=== PATIENT | female | born 1960 | race Caucasian/White ===

== ENCOUNTER 2020-10-30 02:49 | Outpatient (CLI) | payer OTHER, SELFPAY ==
[2020-10-30 08:36] LABS: Abs Immature Grans 0.01 10^3/uL (0.0-0.06); Absolute Basophil Count 0.02 10^3/uL (0.0-0.2); Absolute Eosinophil Count 0.03 10^3/uL (0.0-0.7); Absolute Lymphocyte Count 0.57 10^3/uL (1.2-3.4); Absolute Monocyte Count 0.45 10^3/uL (0.1-0.8); Absolute Neutrophil Count 4.43 10^3/uL (1.2-6.7); Basophils % 0.4; Eosinophils % 0.5; HCT 34.9 % (36.0-46.0); HGB 11.2 g/dL (11.2-15.7); Immature Grans % 0.2; Lymphocytes % 10.3; MCH 27.9 pg (27.0-33.0); MCHC 32.1 % (32.0-36.0); Monocytes % 8.2; Neutrophils % 80.4; Nucleated RBC 0 %; Platelet Count 358 10^3/uL (130-400); RBC 4.01 10^6/uL (3.93-5.22); RDW-SD 45.2 fL; WBC 5.51 10^3/uL (4.4-10.8)
[2020-10-30 08:50] LABS: ALT 18 U/L (14-59); AST 16 U/L (15-37); Albumin 3.3 g/dL (3.4-5.0); Alkaline Phosphatase 100 U/L (46-116); Anion Gap 5.5 mmol/L (3-11); BUN 8 mg/dL (7-18); Bilirubin, Total 0.5 mg/dL (0.2-1.0); CO2 29.5 mmol/L (21.0-32.0); CREATININE 0.71 mg/dL (0.55-1.02); Calcium 9.2 mg/dL (8.5-10.1); Chloride 100 mmol/L (98-107); Glucose 94 mg/dL (74-106); Sodium 135 mmol/L (136-145); Total Protein 7.5 g/dL (6.4-8.2)
[2020-10-30 14:53] LABS: FREE T4 1.09 ng/dL (0.76-1.46); TSH 2.56 uIU/mL (0.36-3.74)
== END 2020-10-30 03:09 ==
PROVIDERS: PCP Preventive Medicine Undersea and Hyperbaric Medicine; Visit Provider Preventive Medicine Undersea and Hyperbaric Medicine
DX: C02.1 Malignant neoplasm of border of tongue (principal)
CPT/HCPCS: 36415; 80053; 84439; 84443; 85025

== ENCOUNTER 2020-11-03 04:49 | Outpatient (CLI) | payer OTHER, SELFPAY ==
[2020-11-03] MEDS: Omnipaque 350 MG/ML 50 ML BTL PO (09:38)
[2020-11-03] MEDS: Omnipaque 350 MG/ML 100 ML BTL IJ (10:47)
[2020-11-03] MEDS: Normal Saline - Diluent 50 ML VIAL IV (10:47)
[2020-11-03] MEDS: Normal Saline Flush 10 ML SYR IVP (10:48)
--- NOTE | 2020-11-03 10:49 | DI.CT_ITS ---
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 TECHNIQUE: Imaging Protocol: Axial computed tomography images with coronal and sagittal reformatted images were created and reviewed CONTRAST MATERIAL: Intravenous: Omnipaque 350 Contrast volume:100 ml Oral: None COMPARISON: No exams were available for comparison FINDINGS: CHEST: LUNGS: There is a concerning thick-walled cavitated lesion in the superior segment of the left lower lobe which measures 3.7 centimeters AP by 4.2 centimetres wide by 3.2 cm cephalocaudal. This contain s a fluid level therein. This contacts the pleural surface. Malignant until proven otherwise. Othe r configuration would be for infectious etiology. There is no overlying rib destruction. There is n o ipsilateral pleural effusion. Higher up in the left lung there are few small nodular infiltrates, the largest of these measuring 9 x 7 millimeters, suspicious. There are no significant focal findings in the basal segments of left l ower lobe nor in the lingular segment. In the opposite-right lung there is a small cavitated lesion in the sub apical upper lobe which measu res 7 x 7 millimeters. There are no other cavitated lesions in the right lung. However, there is a prominent mass in the right middle lobe medial segment contiguous with the right heart border, this m easuring 4.3 centimetres AP by 2.6 centimeters wide. Also suspicious for malignancy. There is a very small right pleural effusion. MEDIASTINUM: There is no adenopathy in left hilum. The right hilum is contiguous with the above desc ribed sub hilar masses. There is no subcarinal adenopathy. No adenopathy in the anterior mediastina l fat. No axillary adenopathy evident. Thyroid gland is diminutive CARDIAC: Heart size is normal. There is no pericardial effusion.Caliber of the ascending thoracic ao rta is slightly prominent at 3.8 centimetres. The diameter of the aortic arch is 2.5 centimetres. D iameter of the upper descending thoracic aorta is 2.5 centimetres and diameter of the lower thoracic aorta is 2.2 centimetres. There is no dissection. OSSEOUS: No significant thoracic osseous lesions.. ABDOMEN: There is no ascites. There is a minimal amount of intraperitoneal fat. LIVER: In the mid aspect of the liver adjacent to the portal vein there is a a 3.2 by 2.5 cm lesion w hich is difficult to assess on this single run study but this probably a benign hemangioma given that there is some nodular peripheral enhancement. There are few smaller indeterminate hypodensities in the liver also noted, the largest of these measuring 7 x 4 millimeters. GALLBLADDER/BILIARY: No obvious gallbladder pathology. CBD is not dilated. PANCREAS: No evidence of pancreatic mass nor dilatation of the pancreatic duct. SPLEEN: Spleen is not enlarged. There are no intrasplenic lesions. Splenic and portal veins are joe nt. ADRENALS: There are no significant adrenal masses. KIDNEYS: No calculi nor hydronephrosis. No solid renal masses. There is a 7 millimeter benign cyst in the lateral cortex of the left kidney. There is a 3 millimeter cortical cyst anteriorly in the righ t kidney. No solid renal masses or calculi nor hydronephrosis. ABDOMINAL AORTA: Abdominal aorta is not enlarged and there is no [id number] adenopat hy. ABDOMINAL WALL/GI: No evidence of significant anterior abdominal wall hernia. No bowel obstruction. PELVIS: LYMPH NODES: There is no intrapelvic nor inguinal adenopathy. GI: No evidence of appendicitis.No evidence of sigmoid diverticulitis. URINARY BLADDER: No calculi nor masses evident REPRODUCTIVE: There is a large mass in the fundus of the uterus which measures 8 centimetres AP by 6. 5 centimetres cephalocaudal by 7 centimetres wide, displacing adjacent small enlarged bowel loops. T his mass is heterogeneous and does not have the typical appearance of a benign fibroid possibly aggre ssive fibroid or other neoplasm of the uterus. There are dilated bilateral parauterine veins. These drain into prominent gonadal veins. The ovarie s are difficult to locate. There is a tiny amount of free fluid in the dependent aspect of the pelvi s. OSSEOUS: There is a lytic appearing bone lesion in the right side of the sacrum which measures 3 cent imetres AP by 2 centimeters wide and extends from the lateral aspect of the sacroiliac joint out to t he lateral cortex of the iliac bone where there is cortical bulging and thinning but no distinct dehi scence as of yet. No other significant osseous lesions demonstrated within the bony pelvis and sacru m. IMPRESSION: 1. Multilevel normal findings as described above. 2. Large cavitated lesion in the superior segment of the left lower lobe with thick shaggy wall and f luid level. This malignant versus infectious. Smaller cavitated lesion is seen in the high upper lo be of the opposite-right lung, measuring less than 1 centimeter. 3. Large right middle lobe mass contiguous with the right heart border, also suspicious for malignanc y. Other smaller nodules. Very small right pleural effusion. No left pleural effusion no prominent hilar nor mediastinal adenopathy 4. Findings in the liver, the largest of which measures approximately 3.2 x 2.5 centimetres and is pr obably not metastatic, with appearance probably that of a benign cavernous hemangioma. This is diffi cult to assess accurately on this type study and hemangioma protocol MRI would be recommended here fo r added specificity. Other smaller findings all less than 1 centimeters size are noted in the liver which will also be better characterized on contrast infused MRI. 5. Large ominous central pelvic mass measuring 8 x 6.5 x 7 cm, appearing to be at the uterus level p ossibly an enlarged uterine fibroid, possibly with sarcomatous degeneration. The ovaries are difficu lt to identify in this study as separate structures. 6. There is a relatively well-defined lytic osseous lesion in the right hemipelvis which extends fro m the right sacroiliac joint to the lateral cortex of the right iliac bone. RADIATION DOSE DELIVERED: 1,060.09mGy.cm Total DLP DATA REPOSITORY: All CT scans at this facility are submitted to the National Radiology Data Registry (NRDR) Dose Index Registry (DIR) with the [employer] ([employer]). RADIATION OPTIMIZATION: All CT scans at this facility use at least one of these dose optimization te chniques: automated exposure control; mA and/or kV adjustment per patient size (includes targeted exa ms where dose is matched to clinical indication); or iterative reconstruction.
== END 2020-11-03 05:09 ==
PROVIDERS: PCP Internal Medicine; Visit Provider Internal Medicine Hematology & Oncology
DX: R91.8 Other nonspecific abnormal finding of lung field (principal); C76.0 Malignant neoplasm of head, face and neck; R93.2 Abnormal findings on diagnostic imaging of liver and biliary tract; R19.07 Generalized intra-abdominal and pelvic swelling, mass and lump; R93.7 Abnormal findings on diagnostic imaging of other parts of musculoskeletal system
CPT/HCPCS: 74177; 71260; J3490; Q9967

== ENCOUNTER 2020-11-20 04:22 | Outpatient (CLI) | payer OTHER, SELFPAY ==
[2020-11-20 12:05] LABS: Abs Immature Grans 0.02 10^3/uL (0.0-0.06); Absolute Basophil Count 0.02 10^3/uL (0.0-0.2); Absolute Eosinophil Count 0.05 10^3/uL (0.0-0.7); Absolute Lymphocyte Count 0.51 10^3/uL (1.2-3.4); Absolute Monocyte Count 0.46 10^3/uL (0.1-0.8); Absolute Neutrophil Count 5.59 10^3/uL (1.2-6.7); Basophils % 0.3; Eosinophils % 0.8; HCT 29.9 % (36.0-46.0); HGB 9.5 g/dL (11.2-15.7); Immature Grans % 0.3; Lymphocytes % 7.7; MCH 26.4 pg (27.0-33.0); MCHC 31.8 % (32.0-36.0); MCV 83.1 fL (80-95); Monocytes % 6.9; Nucleated RBC 0 %; Platelet Count 443 10^3/uL (130-400); RDW 14.4 % (11.7-14.6); RDW-SD 43.5 fL; WBC 6.65 10^3/uL (4.4-10.8)
[2020-11-20 12:29] LABS: ALT 11 U/L (14-59); AST 11 U/L (15-37); Albumin 2.7 g/dL (3.4-5.0); Alkaline Phosphatase 100 U/L (46-116); Anion Gap 8.9 mmol/L (3-11); BUN 6 mg/dL (7-18); Bilirubin, Total 0.3 mg/dL (0.2-1.0); CO2 25.1 mmol/L (21.0-32.0); CREATININE 0.5 mg/dL (0.55-1.02); Calcium 8.8 mg/dL (8.5-10.1); Chloride 101 mmol/L (98-107); FREE T4 1.12 ng/dL (0.76-1.46); Glucose 99 mg/dL (74-106); Potassium 3.9 mmol/L (3.5-5.1); Sodium 135 mmol/L (136-145); TSH 5.37 uIU/mL (0.36-3.74); Total Protein 6.8 g/dL (6.4-8.2)
== END 2020-11-20 04:42 ==
PROVIDERS: PCP Internal Medicine; Visit Provider Internal Medicine Hematology & Oncology
DX: C02.1 Malignant neoplasm of border of tongue (principal)
CPT/HCPCS: 36415; 80053; 84439; 84443; 85025

== ENCOUNTER 2020-12-11 02:54 | Outpatient (CLI) | payer OTHER, SELFPAY ==
[2020-12-11 12:23] LABS: Abs Immature Grans 0.02 10^3/uL (0.0-0.06); Absolute Basophil Count 0.03 10^3/uL (0.0-0.2); Absolute Eosinophil Count 0.05 10^3/uL (0.0-0.7); Absolute Lymphocyte Count 0.41 10^3/uL (1.2-3.4); Absolute Monocyte Count 0.56 10^3/uL (0.1-0.8); Absolute Neutrophil Count 7.26 10^3/uL (1.2-6.7); Basophils % 0.4; Eosinophils % 0.6; HCT 29.9 % (36.0-46.0); HGB 9.3 g/dL (11.2-15.7); Immature Grans % 0.2; Lymphocytes % 4.9; MCH 26.1 pg (27.0-33.0); MCHC 31.1 % (32.0-36.0); MPV 8.9 fL (8.0-11.0); Monocytes % 6.7; Neutrophils % 87.2; Nucleated RBC 0 %; Platelet Count 400 10^3/uL (130-400); RBC 3.56 10^6/uL (3.93-5.22); RDW 15.9 % (11.7-14.6); RDW-SD 48.8 fL; WBC 8.33 10^3/uL (4.4-10.8)
[2020-12-11 12:47] LABS: ALT 10 U/L (14-59); AST 12 U/L (15-37); Albumin 2.6 g/dL (3.4-5.0); Alkaline Phosphatase 96 U/L (46-116); BUN 12 mg/dL (7-18); Bilirubin, Total 0.3 mg/dL (0.2-1.0); CREATININE 0.6 mg/dL (0.55-1.02); Calcium 8.6 mg/dL (8.5-10.1); Chloride 103 mmol/L (98-107); FREE T4 1.35 ng/dL (0.76-1.46); Glucose 92 mg/dL (74-106); Potassium 4.1 mmol/L (3.5-5.1); Sodium 137 mmol/L (136-145); TSH 2.29 uIU/mL (0.36-3.74); Total Protein 6.6 g/dL (6.4-8.2)
== END 2020-12-11 02:55 | disposition home or self-care (01) ==
LOC: LBO 02:54
PROVIDERS: PCP Internal Medicine; Visit Provider Internal Medicine Hematology & Oncology
DX: C02.1 Malignant neoplasm of border of tongue (principal)
CPT/HCPCS: 36415; 80053; 84439; 84443; 85025

== ENCOUNTER 2020-12-18 04:33 | Outpatient (CLI) | payer OTHER, SELFPAY ==
[2020-12-18 07:30] LABS: Abs Immature Grans 0.01 10^3/uL (0.0-0.06); Absolute Basophil Count 0.03 10^3/uL (0.0-0.2); Absolute Eosinophil Count 0.05 10^3/uL (0.0-0.7); Absolute Lymphocyte Count 0.39 10^3/uL (1.2-3.4); Absolute Monocyte Count 0.49 10^3/uL (0.1-0.8); Absolute Neutrophil Count 6.45 10^3/uL (1.2-6.7); Basophils % 0.4; Eosinophils % 0.7; HCT 31.1 % (36.0-46.0); HGB 9.8 g/dL (11.2-15.7); Immature Grans % 0.1; Lymphocytes % 5.3; MCH 26.1 pg (27.0-33.0); MCHC 31.5 % (32.0-36.0); MCV 82.7 fL (80-95); MPV 9.7 fL (8.0-11.0); Monocytes % 6.6; Neutrophils % 86.9; Nucleated RBC 0 %; Platelet Count 385 10^3/uL (130-400); RBC 3.76 10^6/uL (3.93-5.22); RDW 15.9 % (11.7-14.6); RDW-SD 48.4 fL; WBC 7.42 10^3/uL (4.4-10.8)
[2020-12-18 07:57] LABS: ALT 11 U/L (14-59); AST 12 U/L (15-37); Albumin 2.9 g/dL (3.4-5.0); Alkaline Phosphatase 102 U/L (46-116); Anion Gap 6.3 mmol/L (3-11); BUN 11 mg/dL (7-18); Bilirubin, Total 0.3 mg/dL (0.2-1.0); CO2 28.7 mmol/L (21.0-32.0); CREATININE 0.6 mg/dL (0.55-1.02); Chloride 100 mmol/L (98-107); Glucose 98 mg/dL (74-106); Potassium 3.9 mmol/L (3.5-5.1); Sodium 135 mmol/L (136-145); TSH 2.43 uIU/mL (0.36-3.74); Total Protein 7.2 g/dL (6.4-8.2)
== END 2020-12-18 04:34 | disposition home or self-care (01) ==
LOC: LBO 04:33
PROVIDERS: PCP Internal Medicine; Visit Provider Internal Medicine Hematology & Oncology
DX: C02.1 Malignant neoplasm of border of tongue (principal)
CPT/HCPCS: 36415; 80053; 84439; 84443; 85025

== ENCOUNTER 2021-01-08 03:39 | Outpatient (CLI) | payer OTHER, SELFPAY ==
[2021-01-08 08:03] LABS: Abs Immature Grans 0.03 10^3/uL (0.0-0.06); Absolute Basophil Count 0.04 10^3/uL (0.0-0.2); Absolute Eosinophil Count 0.03 10^3/uL (0.0-0.7); Absolute Lymphocyte Count 0.41 10^3/uL (1.2-3.4); Absolute Monocyte Count 0.54 10^3/uL (0.1-0.8); Absolute Neutrophil Count 6.98 10^3/uL (1.2-6.7); Basophils % 0.5; Eosinophils % 0.4; HGB 9.1 g/dL (11.2-15.7); Immature Grans % 0.4; Lymphocytes % 5.1; MCH 24.8 pg (27.0-33.0); MCHC 30.3 % (32.0-36.0); MCV 81.7 fL (80-95); MPV 8.1 fL (8.0-11.0); Monocytes % 6.7; Neutrophils % 86.9; Nucleated RBC 0 %; Platelet Count 504 10^3/uL (130-400); RBC 3.67 10^6/uL (3.93-5.22); RDW 17.7 % (11.7-14.6); RDW-SD 51.2 fL; WBC 8.03 10^3/uL (4.4-10.8)
[2021-01-08 08:24] LABS: ALT 14 U/L (14-59); AST 14 U/L (15-37); Albumin 2.9 g/dL (3.4-5.0); Alkaline Phosphatase 92 U/L (46-116); Anion Gap 6.5 mmol/L (3-11); BUN 16 mg/dL (7-18); Bilirubin, Total 0.2 mg/dL (0.2-1.0); CO2 29.5 mmol/L (21.0-32.0); CREATININE 0.6 mg/dL (0.55-1.02); Calcium 8.8 mg/dL (8.5-10.1); Chloride 99 mmol/L (98-107); FREE T4 1.21 ng/dL (0.76-1.46); Glucose 105 mg/dL (74-106); Potassium 4.5 mmol/L (3.5-5.1); Sodium 135 mmol/L (136-145); TSH 3.68 uIU/mL (0.36-3.74)
[2021-01-08 09:29] LABS: Magnesium 2.3 mg/dL (1.8-2.4)
== END 2021-01-08 03:40 | disposition home or self-care (01) ==
LOC: LBO 03:40
PROVIDERS: PCP Internal Medicine; Visit Provider Internal Medicine Hematology & Oncology
DX: C02.1 Malignant neoplasm of border of tongue (principal)
CPT/HCPCS: 36415; 80053; 83735; 84439; 84443; 85025

== ENCOUNTER 2021-01-29 08:02 | Outpatient (CLI) | payer OTHER, SELFPAY ==
[2021-01-29 08:21] LABS: Abs Immature Grans 0.01 10^3/uL (0.0-0.06); Absolute Basophil Count 0.04 10^3/uL (0.0-0.2); Absolute Eosinophil Count 0.02 10^3/uL (0.0-0.7); Absolute Lymphocyte Count 0.44 10^3/uL (1.2-3.4); Absolute Neutrophil Count 4.86 10^3/uL (1.2-6.7); Basophils % 0.7; Eosinophils % 0.3; HCT 32.4 % (36.0-46.0); HGB 9.9 g/dL (11.2-15.7); Immature Grans % 0.2; Lymphocytes % 7.5; MCHC 30.6 % (32.0-36.0); MCV 81.8 fL (80-95); MPV 8.1 fL (8.0-11.0); Monocytes % 8.5; Neutrophils % 82.8; Nucleated RBC 0 %; Platelet Count 460 10^3/uL (130-400); RBC 3.96 10^6/uL (3.93-5.22); RDW 18.6 % (11.7-14.6); RDW-SD 54.9 fL; WBC 5.87 10^3/uL (4.4-10.8)
[2021-01-29 08:42] LABS: ALT 14 U/L (14-59); AST 10 U/L (15-37); Albumin 3.2 g/dL (3.4-5.0); Alkaline Phosphatase 94 U/L (46-116); Anion Gap 8.2 mmol/L (3-11); BUN 12 mg/dL (7-18); Bilirubin, Total 0.2 mg/dL (0.2-1.0); CO2 29.8 mmol/L (21.0-32.0); CREATININE 0.6 mg/dL (0.55-1.02); Chloride 99 mmol/L (98-107); FREE T4 1.16 ng/dL (0.76-1.46); Glucose 96 mg/dL (74-106); Sodium 137 mmol/L (136-145); TSH 3.89 uIU/mL (0.36-3.74)
== END 2021-01-29 08:03 | disposition home or self-care (01) ==
LOC: LBO 08:03
PROVIDERS: PCP Internal Medicine; Visit Provider Internal Medicine Hematology & Oncology
DX: C02.1 Malignant neoplasm of border of tongue (principal); R94.6 Abnormal results of thyroid function studies
CPT/HCPCS: 36415; 80053; 83735; 84439; 84443; 85025

== ENCOUNTER 2021-02-19 08:32 | Outpatient (CLI) | payer OTHER, SELFPAY ==
[2021-02-19 08:42] LABS: Abs Immature Grans 0.02 10^3/uL (0.0-0.06); Absolute Basophil Count 0.02 10^3/uL (0.0-0.2); Absolute Eosinophil Count 0.01 10^3/uL (0.0-0.7); Absolute Lymphocyte Count 0.48 10^3/uL (1.2-3.4); Absolute Neutrophil Count 3.56 10^3/uL (1.2-6.7); Basophils % 0.4; Eosinophils % 0.2; HGB 10.8 g/dL (11.2-15.7); Immature Grans % 0.4; Lymphocytes % 10.5; MCH 25.5 pg (27.0-33.0); MCHC 30.9 % (32.0-36.0); MCV 82.7 fL (80-95); MPV 8.1 fL (8.0-11.0); Monocytes % 10.9; Neutrophils % 77.6; Nucleated RBC 0 %; Platelet Count 441 10^3/uL (130-400); RBC 4.23 10^6/uL (3.93-5.22); RDW 19.6 % (11.7-14.6); RDW-SD 58.2 fL; WBC 4.59 10^3/uL (4.4-10.8)
[2021-02-19 08:56] LABS: ALT 17 U/L (14-59); AST 15 U/L (15-37); Albumin 3.4 g/dL (3.4-5.0); Alkaline Phosphatase 100 U/L (46-116); Anion Gap 6.8 mmol/L (3-11); BUN 11 mg/dL (7-18); Bilirubin, Total 0.3 mg/dL (0.2-1.0); CO2 31.2 mmol/L (21.0-32.0); CREATININE 0.6 mg/dL (0.55-1.02); Chloride 100 mmol/L (98-107); Glucose 98 mg/dL (74-106); Potassium 4.1 mmol/L (3.5-5.1); Sodium 138 mmol/L (136-145); Total Protein 7.6 g/dL (6.4-8.2)
[2021-02-19 10:15] LABS: Magnesium 2.2 mg/dL (1.8-2.4)
== END 2021-02-19 08:33 | disposition home or self-care (01) ==
LOC: LBO 08:32
PROVIDERS: PCP Internal Medicine; Visit Provider Internal Medicine Hematology & Oncology
DX: C02.1 Malignant neoplasm of border of tongue (principal)
CPT/HCPCS: 36415; 80053; 83735; 85025

== ENCOUNTER 2021-03-12 02:13 | Outpatient (CLI) | payer OTHER, SELFPAY ==
[2021-03-12 08:04] LABS: Abs Immature Grans 0.01 10^3/uL (0.0-0.06); Absolute Basophil Count 0.03 10^3/uL (0.0-0.2); Absolute Eosinophil Count 0.02 10^3/uL (0.0-0.7); Absolute Lymphocyte Count 0.55 10^3/uL (1.2-3.4); Absolute Monocyte Count 0.62 10^3/uL (0.1-0.8); Absolute Neutrophil Count 3.61 10^3/uL (1.2-6.7); Basophils % 0.6; Eosinophils % 0.4; HCT 34.4 % (36.0-46.0); Immature Grans % 0.2; Lymphocytes % 11.4; MCH 26.1 pg (27.0-33.0); MCV 81.5 fL (80-95); MPV 8.2 fL (8.0-11.0); Monocytes % 12.8; Neutrophils % 74.6; Nucleated RBC 0 %; Platelet Count 462 10^3/uL (130-400); RBC 4.22 10^6/uL (3.93-5.22); RDW 18.4 % (11.7-14.6); RDW-SD 54.3 fL; WBC 4.84 10^3/uL (4.4-10.8)
[2021-03-12 08:26] LABS: ALT 12 U/L (14-59); AST 13 U/L (15-37); Albumin 3.4 g/dL (3.4-5.0); Alkaline Phosphatase 104 U/L (46-116); Anion Gap 6.8 mmol/L (3-11); BUN 9 mg/dL (7-18); Bilirubin, Total 0.3 mg/dL (0.2-1.0); CO2 30.2 mmol/L (21.0-32.0); CREATININE 0.7 mg/dL (0.55-1.02); Calcium 9.3 mg/dL (8.5-10.1); Chloride 99 mmol/L (98-107); FREE T4 1.35 ng/dL (0.76-1.46); Glucose 96 mg/dL (74-106); Potassium 4.3 mmol/L (3.5-5.1); Sodium 136 mmol/L (136-145); TSH 2.03 uIU/mL (0.36-3.74); Total Protein 7.8 g/dL (6.4-8.2)
== END 2021-03-12 02:14 | disposition home or self-care (01) ==
LOC: LBO 02:13
PROVIDERS: PCP Internal Medicine; Visit Provider Internal Medicine Hematology & Oncology
DX: C02.1 Malignant neoplasm of border of tongue (principal); R94.6 Abnormal results of thyroid function studies
CPT/HCPCS: 36415; 80053; 84439; 84443; 85025

== ENCOUNTER 2021-04-09 03:19 | Outpatient (CLI) | payer OTHER, SELFPAY ==
[2021-04-09 09:32] LABS: Abs Immature Grans 0.01 10^3/uL (0.0-0.06); Absolute Basophil Count 0.02 10^3/uL (0.0-0.2); Absolute Eosinophil Count 0.03 10^3/uL (0.0-0.7); Absolute Lymphocyte Count 0.45 10^3/uL (1.2-3.4); Absolute Monocyte Count 0.26 10^3/uL (0.1-0.8); Absolute Neutrophil Count 2.73 10^3/uL (1.2-6.7); Basophils % 0.6; Eosinophils % 0.9; HCT 34.4 % (36.0-46.0); HGB 10.9 g/dL (11.2-15.7); Immature Grans % 0.3; Lymphocytes % 12.9; MCH 26.6 pg (27.0-33.0); MCHC 31.7 % (32.0-36.0); MCV 83.9 fL (80-95); MPV 8.4 fL (8.0-11.0); Monocytes % 7.4; Neutrophils % 77.9; Nucleated RBC 0 %; RDW 21.2 % (11.7-14.6); RDW-SD 61.9 fL
[2021-04-09 09:57] LABS: ALT 13 U/L (14-59); AST 13 U/L (15-37); Albumin 3.5 g/dL (3.4-5.0); Alkaline Phosphatase 105 U/L (46-116); Anion Gap 8.5 mmol/L (3-11); BUN 20 mg/dL (7-18); Bilirubin, Total 0.3 mg/dL (0.2-1.0); CO2 27.5 mmol/L (21.0-32.0); CREATININE 0.7 mg/dL (0.55-1.02); Calcium 9.2 mg/dL (8.5-10.1); Chloride 101 mmol/L (98-107); FREE T4 1.22 ng/dL (0.76-1.46); Glucose 90 mg/dL (74-106); Sodium 137 mmol/L (136-145); TSH 1.46 uIU/mL (0.36-3.74); Total Protein 7.4 g/dL (6.4-8.2)
[2021-04-09 10:30] LABS: Anisocytosis 3+; Diff Comment Diff Reviewed; Platelet Count 342 10^3/uL (130-400)
== END 2021-04-09 03:20 | disposition home or self-care (01) ==
LOC: LBO 03:19
PROVIDERS: PCP Internal Medicine; Visit Provider Internal Medicine Hematology & Oncology
DX: C02.1 Malignant neoplasm of border of tongue (principal); D64.9 Anemia, unspecified
CPT/HCPCS: 36415; 80053; 84439; 84443; 85025

== ENCOUNTER 2021-04-30 03:15 | Outpatient (CLI) | payer OTHER, SELFPAY ==
[2021-04-30 09:47] LABS: Abs Immature Grans 0.01 10^3/uL (0.0-0.06); Absolute Basophil Count 0.02 10^3/uL (0.0-0.2); Absolute Eosinophil Count 0.02 10^3/uL (0.0-0.7); Absolute Lymphocyte Count 0.51 10^3/uL (1.2-3.4); Absolute Monocyte Count 0.26 10^3/uL (0.1-0.8); Absolute Neutrophil Count 3.68 10^3/uL (1.2-6.7); Basophils % 0.4; Eosinophils % 0.4; HCT 32.3 % (36.0-46.0); HGB 10.4 g/dL (11.2-15.7); Immature Grans % 0.2; Lymphocytes % 11.3; MCH 28.7 pg (27.0-33.0); MCHC 32.2 % (32.0-36.0); MCV 89.2 fL (80-95); MPV 8.5 fL (8.0-11.0); Monocytes % 5.8; Neutrophils % 81.9; Nucleated RBC 0 %; RBC 3.62 10^6/uL (3.93-5.22); RDW 23.6 % (11.7-14.6); RDW-SD 76.4 fL
[2021-04-30 10:01] LABS: Anisocytosis 3+; Diff Comment Diff Reviewed; Platelet Count 346 10^3/uL (130-400)
[2021-04-30 10:14] LABS: ALT 17 U/L (14-59); AST 15 U/L (15-37); Albumin 3.8 g/dL (3.4-5.0); Alkaline Phosphatase 97 U/L (46-116); Anion Gap 11.2 mmol/L (3-11); BUN 29 mg/dL (7-18); Bilirubin, Total 0.2 mg/dL (0.2-1.0); CO2 24.8 mmol/L (21.0-32.0); CREATININE 0.7 mg/dL (0.55-1.02); Calcium 9.2 mg/dL (8.5-10.1); Chloride 102 mmol/L (98-107); FREE T4 1.13 ng/dL (0.76-1.46); Glucose 79 mg/dL (74-106); Sodium 138 mmol/L (136-145); TSH 2.15 uIU/mL (0.36-3.74); Total Protein 7.7 g/dL (6.4-8.2)
== END 2021-04-30 03:16 | disposition home or self-care (01) ==
LOC: LBO 03:15
PROVIDERS: PCP Internal Medicine; Visit Provider Internal Medicine Hematology & Oncology
DX: C02.1 Malignant neoplasm of border of tongue (principal)
CPT/HCPCS: 36415; 80053; 84439; 84443; 85025

== ENCOUNTER 2021-05-21 02:46 | Outpatient (CLI) | payer OTHER, SELFPAY ==
[2021-05-21 12:31] LABS: Abs Immature Grans 0.03 10^3/uL (0.0-0.06); Absolute Basophil Count 0.03 10^3/uL (0.0-0.2); Absolute Eosinophil Count 0.03 10^3/uL (0.0-0.7); Absolute Lymphocyte Count 0.61 10^3/uL (1.2-3.4); Absolute Monocyte Count 0.39 10^3/uL (0.1-0.8); Absolute Neutrophil Count 3.46 10^3/uL (1.2-6.7); Basophils % 0.7; Eosinophils % 0.7; HCT 34.6 % (36.0-46.0); HGB 11.2 g/dL (11.2-15.7); Immature Grans % 0.7; Lymphocytes % 13.4; MCH 29.9 pg (27.0-33.0); MCHC 32.4 % (32.0-36.0); MCV 92.5 fL (80-95); MPV 8.6 fL (8.0-11.0); Monocytes % 8.6; Neutrophils % 75.9; Nucleated RBC 0 %; Platelet Count 291 10^3/uL (130-400); RBC 3.74 10^6/uL (3.93-5.22); RDW 24.9 % (11.7-14.6); RDW-SD 83.7 fL; WBC 4.55 10^3/uL (4.4-10.8)
[2021-05-21 12:50] LABS: Anisocytosis 2+; Diff Comment RBC Morph Reviewed
[2021-05-21 13:08] LABS: ALT 18 U/L (14-59); AST 15 U/L (15-37); Albumin 3.7 g/dL (3.4-5.0); Alkaline Phosphatase 85 U/L (46-116); Anion Gap 5.9 mmol/L (3-11); BUN 15 mg/dL (7-18); Bilirubin, Total 0.4 mg/dL (0.2-1.0); CO2 30.1 mmol/L (21.0-32.0); CREATININE 0.7 mg/dL (0.55-1.02); Calcium 9.6 mg/dL (8.5-10.1); Chloride 105 mmol/L (98-107); Glucose 87 mg/dL (74-106); Potassium 4.9 mmol/L (3.5-5.1); Sodium 141 mmol/L (136-145); TSH 2.19 uIU/mL (0.36-3.74); Total Protein 7.3 g/dL (6.4-8.2)
== END 2021-05-21 02:47 | disposition home or self-care (01) ==
LOC: LBO 02:46
PROVIDERS: PCP Internal Medicine; Visit Provider Internal Medicine Hematology & Oncology
DX: C02.1 Malignant neoplasm of border of tongue (principal)
CPT/HCPCS: 36415; 80053; 84439; 84443; 85025